=== PATIENT | male | born 1970 | race Caucasian/White ===

== ENCOUNTER → 2016-06-18 | Day surgery (SDC) | payer OTHER ==
[~2016-06-18] MED LIST: BACTRIM DS TAB1 EACH PO; KEFLEX500 MG PO; OMEPRAZOLE10 M1 PO
--- NOTE | ~2016-06-18 | OR ---
Unit #: [id number] #: [id number] Patient: STEVE MORGAN [id number] [address] [address] [id number] O MR#: [id number] NAME: STEVE MORGAN ROOM: Date of Procedure: 06/18/2016 Admission Date: 06/18/2016 Surgeon: Dex Hernández III, M.D. : 1970 Attending Physician: Dex Hernández III, M.D. OPERATIVE REPORT PREOPERATIVE DIAGNOSIS Infected pilonidal abscess. POSTOPERATIVE DIAGNOSIS Infected pilonidal abscess. PROCEDURE PERFORMED Incision and drainage of pilonidal abscess. SECURITY OFFICER None. ANESTHESIA General endotracheal tube anesthesia. SPECIMENS To microbiology. COMPLICATIONS None apparent. INDICATIONS FOR PROCEDURE This is a 46-year-old gentleman, who came into the office and saw my partner, Dr. Berkowitz today. He was diagnosed with infected pilonidal abscess and was sent over for incision and drainage. DESCRIPTION OF PROCEDURE After consent was obtained, the patient was brought to the operating room and placed in the supine position. General anesthetic was administered and he was placed comfortably in the prone position. We prepped and draped the sacral region in standard surgical fashion. He had a pointing abscess in the typical location for pilonidal abscess. I made a longitudinal incision along the midline and evacuated a purulent cavity. Cultures of this were obtained. It should be noted this was fairly small cavity, no bigger than 2 x 2 cm. I packed the wound after it was irrigated with a quarter-inch iodoform gauze. Sterile dressing were then applied. He tolerated the procedure without any problems and returned to the recovery room in stable condition. Dictated by... Dex Hernández III, M.D. Unit #: [id number] #: [id number] Patient: STEVE MORGAN VCL/modl TD: 06/20/2016 08:00 JOB #: [id number] OPERATIVE REPORT Page 1 of 1 X Lusco,Vincent C III MD X PROCEDURE OPERATIVE NOTE
== END | disposition home or self-care (01) ==
LOC: CSUR 09:50
DX: L05.01 Pilonidal cyst with abscess (principal); K21.9 Gastro-esophageal reflux disease without esophagitis; M19.90 Unspecified osteoarthritis, unspecified site; J43.9 Emphysema, unspecified; I10 Essential (primary) hypertension; G43.909 Migraine, unspecified, not intractable, without status migrainosus; E66.9 Obesity, unspecified; G47.30 Sleep apnea, unspecified; Z88.6 Allergy status to analgesic agent; Z79.899 Other long term (current) drug therapy; Z87.891 Personal history of nicotine dependence
CPT/HCPCS: 87070; 87075; 87076; 87077; 87205; J0330; J1100; J1885; J2405; J2543; J3010

== ENCOUNTER 2016-07-12 20:22 | Emergency (ER) | payer OTHER ==
--- NOTE | ~2016-07-12 | CR229 ---
[facility] A Service of [facility] RADIOLOGY TEXT RESULTS PATIENT: STEVE MORGAN LOCATION: [place] : [birth year] UNIT #: [id number] AGE: [address]: Raffi Bermeo DO SEX: M ORDER DR: [id number] [facility] [address] [place], [place] [address] [id number] E MR#: [id number] Acc #: [id number] NAME: STEVE MORGAN : 1970 SEX: M STUDY DATE/TIME: 07/12/2016 19:13 UNIT: [facility] ROOM: STUDY DESCRIPTION: CR Shoulder Min 2 View Lt Attending Physician: Raffi Bermeo D.O. Ordering Physician: Ed Doctor [id number] [facility] Primary Care Physician: No Primary Care Physician MEDICAL IMAGING REPORT This report is preliminary unless electronic signature is present EXAM left shoulder 07/12/2016 HISTORY A 46-year-old male with left shoulder pain beginning today. COMPARISON STUDIES None. FINDINGS 3 views of the left shoulder demonstrate no acute fracture or dislocation. Acromioclavicular joint is within normal limits. Soft tissues are unremarkable. IMPRESSION Unremarkable left shoulder Dictated by... Atilio Jasso M.D. THIS IS AN ELECTRONICALLY VERIFIED REPORT Atilio Jasso M.D. at 07/13/2016 4:47 PM Jani TD: 07/13/2016 00:30 JOB #: [id number] MEDICAL IMAGING REPORT Page 1 of 1 COPY
== END 2016-07-12 20:25 | disposition home or self-care (01) ==
LOC: CFTX 20:22
DX: S46.912A Strain of unspecified muscle, fascia and tendon at shoulder and upper arm level, left arm, initial encounter (principal); K21.9 Gastro-esophageal reflux disease without esophagitis; F17.200 Nicotine dependence, unspecified, uncomplicated; Z88.5 Allergy status to narcotic agent; X58.XXXA Exposure to other specified factors, initial encounter; Y92.9 Unspecified place or not applicable
CPT/HCPCS: 73030; 99283

== ENCOUNTER → 2016-08-17 | Outpatient (CLI) | payer OTHER ==
[2016-08-17 09:03] LABS: HEMATOCRIT 52.6 % (38.0-50.0); HEMOGLOBIN 17.4 gm/dL (13.0-16.0); MEAN CELL VOLUME 88.9 FL (83-96); MEAN CORPUSCULAR HEMOGLOBIN 29.4 PG (28-34); MEAN CORPUSCULAR HGB CONC 33.1 g/dL (30-36); MEAN PLATELET VOLUME 9.9 FL (6.5-11.5); RED BLOOD COUNT 5.91 X10e (3.90-5.60); RED CELL DISTRIBUTION WIDTH 13.7 % (11.0-15.5)
[2016-08-17 09:23] LABS: BUN/CREATININE RATIO 14.44; CALCIUM SERUM 9.3 mg/dL (8.4-10.2); CREATININE SERUM 0.9 mg/dL (0.6-1.4); GLOM FILT RATE Estimated 102.1 mL/min (>60); POTASSIUM 4.4 mmol/L (3.5-5.1)
== END | disposition home or self-care (01) ==
LOC: CLAB 08:35
PROVIDERS: Orthopaedic Surgery
DX: M75.102 Unspecified rotator cuff tear or rupture of left shoulder, not specified as traumatic (principal)
CPT/HCPCS: 36415; 80048; 85027